=== PATIENT | female | born 1970 | race Caucasian/White ===

== ENCOUNTER 2017-04-02 19:38 | Emergency (ER) | payer OTHER ==
--- NOTE | 2017-04-02 20:10 | ER Report ---
History and Physical Time Seen By MD: 20:00 HPI/ROS CHIEF COMPLAINT: Low-grade fevers HISTORY OF PRESENT ILLNESS: 46-year-old female postop day 8 from multilevel lumbar fusion presents with cough sore throat malaise low-grade fevers at home and back pain is been difficult to control despite Percocet 10mg taken earlier today. She said she did not take her Soma because her stomach is torn up at this time. No abdominal pain or vomiting. No bloody stools. No bloody emesis. REVIEW OF SYSTEMS: Constitutional: No fever, no chills. Eyes: No discharge. ENT: No sore throat. Cardiovascular: No chest pain, no palpitations. Respiratory: No cough, no shortness of breath. Gastrointestinal: No abdominal pain, no vomiting. Genitourinary: No hematuria. Musculoskeletal: No back pain. Skin: No rashes. Neurological: No headache. Constitutional Vital Sign - Last 24 Hours 04/02/17 19:46 Temp 97.8 Physical Exam General Appearance: The patient is alert, has no immediate need for airway protection and no signs of toxicity. No acute distress Eyes: Pupils equal and round no pallor or injection. ENT, Mouth: Mucous membranes are moist. Respiratory: There are no retractions, lungs are clear to auscultation. Cardiovascular: Regular rate and rhythm. No murmurs gallops or rubs Gastrointestinal: Abdomen is soft and non tender, no masses, bowel sounds normal. Neurological: Normal Skin: Warm and dry, no rashes. Operative wound was visualized rahat intact no dehiscence mild serous sanguinous drainage evident on the dressing, small. Palpation produces no fluctuance or other signs of abscess. No significant tenderness to palpation. Musculoskeletal: Neck is supple non tender. Extremities are nontender, nonswollen and have full range of motion. No edema DIFFERENTIAL DIAGNOSIS: After history and physical exam differential diagnosis was considered for postop wound infection, abscess strep influenza no signs of bacteremia sepsis or other dangerous process Medical Decision Making Data Points Result Diagram: 04/02/17204704/02/172047 Laboratory Hematology Test 04/02/17 20:25 04/02/17 20:35 04/02/17 20:48 Urine Color Yellow Urine Clarity Slightly-cloudy Urine pH 6.0 pH (4.8-9.5) Urine Specific Dexter 1.026 Urine Protein Negative mg/dL (NEGATIVE) Urine Glucose (UA) Negative mg/dL (NEGATIVE) Urine Ketones Negative mg/dL (NEGATIVE) Urine Blood Negative (NEGATIVE) Urine Nitrite Negative (NEGATIVE) Urine Bilirubin Negative (NEGATIVE) Urine Urobilinogen Negative mg/dL (0.2-1.9) Urine Leukocyte Esterase Large (NEGATIVE) Urine RBC 2 /HPF (0-2/HPF) Urine WBC 72 /HPF (0-5/HPF) Urine Squamous Epithelial Cells Many /LPF (</=FEW) Urine Bacteria Few /HPF (NONE-FEW) Urine Hyaline Casts Few /LPF (NONE-FEW) Urine Mucus None /HPF (NONE-FEW) Influenza Virus Type A (PCR) Negative (NEGATIVE) Influenza Virus Type B (PCR) Negative (NEGATIVE) Group A Streptococcus Screen Negative (NEGATIVE) Red Blood Count 4.36 M/uL (4.17-5.56) Mean Corpuscular Volume 87.1 fL (80.0-96.0) Mean Corpuscular Hemoglobin 30.2 pg (26.0-33.0) Mean Corpuscular Hemoglobin Concent 34.7 g/dL (32.0-36.0) Red Cell Distribution Width 13.0 % (11.5-14.5) Mean Platelet Volume 6.1 fL (7.2-11.1) Neutrophils (%) (Auto) 55.4 % (39.4-72.5) Lymphocytes (%) (Auto) 34.8 % (17.6-49.6) Monocytes (%) (Auto) 7.4 % (4.1-12.4) Eosinophils (%) (Auto) 1.8 % (0.4-6.7) Basophils (%) (Auto) 0.6 % (0.3-1.4) Nucleated RBC Relative Count (auto) 0.0 /100WBC Neutrophils # (Auto) 5.3 K/uL (2.0-7.4) Lymphocytes # (Auto) 3.4 K/uL (1.3-3.6) Monocytes # (Auto) 0.7 K/uL (0.3-1.0) Eosinophils # (Auto) 0.2 K/uL (0.0-0.5) Basophils # (Auto) 0.1 K/uL (0.0-0.1) Nucleated RBC Absolute Count (auto) 0.00 K/uL Peripheral Blood Smear Yes Y/N Sodium Level 138 mmol/L (137-145) Potassium Level 3.8 mmol/L (3.5-5.0) Chloride Level 101 mmol/L (98-107) Carbon Dioxide Level 24 mmol/L (22-31) Blood Urea Nitrogen 15 mg/dl (7-18) Creatinine 0.80 mg/dl (0.52-1.04) Glomerular Filtration Rate Calc > 60.0 Random Glucose 107 mg/dl (75-110) Calcium Level 9.4 mg/dl (8.4-10.2) C-Reactive Protein 1.6 mg/dl (<1.0) Chemistry Test 04/02/17 20:25 04/02/17 20:35 04/02/17 20:48 Urine Color Yellow Urine Clarity Slightly-cloudy Urine pH 6.0 pH (4.8-9.5) Urine Specific Dexter 1.026 Urine Protein Negative mg/dL (NEGATIVE) Urine Glucose (UA) Negative mg/dL (NEGATIVE) Urine Ketones Negative mg/dL (NEGATIVE) Urine Blood Negative (NEGATIVE) Urine Nitrite Negative (NEGATIVE) Urine Bilirubin Negative (NEGATIVE) Urine Urobilinogen Negative mg/dL (0.2-1.9) Urine Leukocyte Esterase Large (NEGATIVE) Urine RBC 2 /HPF (0-2/HPF) Urine WBC 72 /HPF (0-5/HPF) Urine Squamous Epithelial Cells Many /LPF (</=FEW) Urine Bacteria Few /HPF (NONE-FEW) Urine Hyaline Casts Few /LPF (NONE-FEW) Urine Mucus None /HPF (NONE-FEW) Influenza Virus Type A (PCR) Negative (NEGATIVE) Influenza Virus Type B (PCR) Negative (NEGATIVE) Group A Streptococcus Screen Negative (NEGATIVE) White Blood Count 9.6 k/uL (4.5-11.0) Red Blood Count 4.36 M/uL (4.17-5.56) Hemoglobin 13.2 g/dL (12.0-16.0) Hematocrit 38.0 % (34.0-47.0) Mean Corpuscular Volume 87.1 fL (80.0-96.0) Mean Corpuscular Hemoglobin 30.2 pg (26.0-33.0) Mean Corpuscular Hemoglobin Concent 34.7 g/dL (32.0-36.0) Red Cell Distribution Width 13.0 % (11.5-14.5) Platelet Count 533 K/uL (150-450) Mean Platelet Volume 6.1 fL (7.2-11.1) Neutrophils (%) (Auto) 55.4 % (39.4-72.5) Lymphocytes (%) (Auto) 34.8 % (17.6-49.6) Monocytes (%) (Auto) 7.4 % (4.1-12.4) Eosinophils (%) (Auto) 1.8 % (0.4-6.7) Basophils (%) (Auto) 0.6 % (0.3-1.4) Nucleated RBC Relative Count (auto) 0.0 /100WBC Neutrophils # (Auto) 5.3 K/uL (2.0-7.4) Lymphocytes # (Auto) 3.4 K/uL (1.3-3.6) Monocytes # (Auto) 0.7 K/uL (0.3-1.0) Eosinophils # (Auto) 0.2 K/uL (0.0-0.5) Basophils # (Auto) 0.1 K/uL (0.0-0.1) Nucleated RBC Absolute Count (auto) 0.00 K/uL Peripheral Blood Smear Yes Y/N Glomerular Filtration Rate Calc > 60.0 Calcium Level 9.4 mg/dl (8.4-10.2) C-Reactive Protein 1.6 mg/dl (<1.0) Urinalysis Test 04/02/17 20:25 Urine Color Yellow Urine Clarity Slightly-cloudy Urine pH 6.0 pH (4.8-9.5) Urine Specific Dexter 1.026 Urine Protein Negative mg/dL (NEGATIVE) Urine Glucose (UA) Negative mg/dL (NEGATIVE) Urine Ketones Negative mg/dL (NEGATIVE) Urine Blood Negative (NEGATIVE) Urine Nitrite Negative (NEGATIVE) Urine Bilirubin Negative (NEGATIVE) Urine Urobilinogen Negative mg/dL (0.2-1.9) Urine Leukocyte Esterase Large (NEGATIVE) Urine RBC 2 /HPF (0-2/HPF) Urine WBC 72 /HPF (0-5/HPF) Urine Squamous Epithelial Cells Many /LPF (</=FEW) Urine Bacteria Few /HPF (NONE-FEW) Urine Hyaline Casts Few /LPF (NONE-FEW) Urine Mucus None /HPF (NONE-FEW) ED Course/Re-evaluation ED Course Plan of care agreed-upon prior to orders placed. The risks and benefits of a CT scan to look for postop abscess were discussed and patient feels it may not be warranted at this time. We will perform screening labs in addition to strep and flu studies as well as a chest x-ray given her postop status and symptoms of systemic infectious disease. Decision to Disposition Date: Apr 02, 2017 Decision to Disposition Time: 21:53 Depart Departure Latest Vital Signs Vital Signs Date Time Temp Pulse Resp B/P (MAP) Pulse Ox O2 Delivery O2 Flow Rate FiO2 04/02/17 19:46 97.8 Impression: Primary Impression: UTI (urinary tract infection) Condition: Improved Disposition: HOME OR SELF-CARE Referrals: LAINA CABRAL MD (PCP) New Scripts Cephalexin Monohydrate (CEPHALEXIN) 500 Mg Cap 500 MG PO Q6H for 7 Days, #28 CAP 0 Refills Prov: MARYANNE RAI MD 04/02/17 Patient Instructions: Urinary Tract Infection in Women (ED) MARYANNE RAI MD Apr 02, 2017 20:10
[2017-04-02 20:54] LABS: PLATELET COUNT, AUTOMATED 533 K/uL (150-450)
[2017-04-02] MEDS ORDERED: CEPH500C24 PO (21:55)
[2017-04-02 22:01] VITALS: BP 117/58
--- NOTE | 2017-04-02 22:12 | RADIOLOGY IMAGING REPORT ---
FACILITY: [facility] [place]IENT NAME: Keeley Chavez : 1970 MR: [id number] V: [id number] EXAM DATE: ORDERING PHYSICIAN: MARYANNE RAI TECHNOLOGIST: Location: [facility] Patient: Keeley Chavez : 1970 Visit/Account:[id number] Date of Sevice: 04/02/2017 EXAMINATION: Chest radiographs 2 views HISTORY: Cough. Postop day 8. COMPARISON: None. FINDINGS: PA and lateral views of the chest are submitted. Lines/tubes: None. Lungs/pleura: No focal consolidation or pleural effusion. Pulmonary vascularity is within normal richardson its. No evidence of pneumothorax. Heart: Normal heart size. Mediastinum: Negative. Bony structures/body wall: ACDF hardware at the cervicothoracic junction. IMPRESSION: No radiographic evidence of acute cardiopulmonary disease. Report Dictated By: Khanh Cross MD at 04/02/2017 10:05 PM Report E-Signed By: Khanh Cross MD at 04/02/2017 10:07 PM WSN:[id number]
== END 2017-04-02 22:22 | disposition home or self-care (01) ==
LOC: ER 19:53
DX: N39.0 Urinary tract infection, site not specified (principal)
CPT/HCPCS: 71046; 81001; 82310; 82374; 82435; 82565; 82947; 84132; 84295; 84520; 85025; 86140; 87081; 87502; 87880; 99282

== ENCOUNTER → 2018-01-02 | Outpatient (CLI) | payer OTHER ==
[~2018-01-02] MED LIST: CEPH500C24 PO
[2018-01-02 12:46] LABS: LDL CHOLESTEROL 112 mg/dl
== END ==
LOC: LAB 11:46
PROVIDERS: ATTEND Family Medicine
DX: R73.03 Prediabetes (principal); I10 Essential (primary) hypertension
CPT/HCPCS: 36415; 82040; 82043; 82247; 82310; 82374; 82435; 82465; 82565; 82947; 83036; 83718; 84075; 84132; 84155; 84295; 84450; 84460; 84478; 84520